=== PATIENT | male | born 1990 | race Caucasian/White ===

== ENCOUNTER 2021-07-07 14:59 | Emergency (ER) | payer OTHER ==
[~2021-07-07] VITALS: Ht 182.9 cm; Wt 100.0 kg
[2021-07-07 15:30] VITALS: BP 125/89
== END 2021-07-07 16:40 ==
LOC: ER 14:59
DX: R07.89 Other chest pain (principal); M25.531 Pain in right wrist
CPT/HCPCS: 71101; 73090; 73110; 99284